=== PATIENT | male | born 1965 | race Caucasian/White ===

== ENCOUNTER → 2017-09-12 09:58 | Outpatient (CLI) | payer BC, SELFPAY ==
--- NOTE | 2017-09-12 | DI.RAD.S_ITS ---
PROCEDURE: XR CHEST 2V INDICATIONS: COUGH TECHNIQUE: 2 views of the chest were acquired. COMPARISON: [facility], , CHEST 2 VIEW, 02/27/2013, 16:22. FINDINGS: Surgical changes and devices: None. Lungs and pleura: Mild left basilar infiltrate. No pleural effusions or pneumothorax. Mediastinum: Mediastinal contours are normal. Heart size is normal. Bones and chest wall: No suspicious bony abnormalities. Soft tissues appear unremarkable. IMPRESSION: Mild left basilar infiltrate suspicious for developing pneumonia. Recommend followup to resolution. Dictated by: Tamiko Masterson M.D. on 09/12/2017 at 16:38 Approved by: Tamiko Masterson M.D. on 09/12/2017 at 16:39
== END ==
PROVIDERS: PCP Internal Medicine; Visit Provider Student in an Organized Health Care Education/Training Program
DX: R05 Cough (principal)
CPT/HCPCS: 71046